=== PATIENT | male | born 1975 | race Caucasian/White ===

== ENCOUNTER 2016-08-14 17:53 | Emergency (ER) | payer BC ==
[2016-08-14 18:08] VITALS: RESP 18
[2016-08-14] MEDS ORDERED: SODIUM CHLORIDE 0.9% 1,000 ML IV STA (18:32)
--- NOTE | 2016-08-14 18:37 | ED ---
General Adult HPI - General Chief complaint: Extremity Problem,Nontraumatic Stated complaint: pain and numbness in both hands and legs Time Seen by Provider: 08/14/16 18:17 Source: patient, RN notes reviewed Mode of arrival: ambulatory Limitations: no limitations - History of Present Illness Initial comments: Patient is a 41-year-old male presents to the emergency room for evaluation. Patient states he has a history of pulmonary embolisms and DVTs. Patient states he has been placed on Lovenox, Coumadin or and Xarelto in the past. Patient states he has been on Coumadin for the past year. Patient states he recently went on a trip to [facility]. Patient states he was sitting in a car for multiple hours during the day while traveling, which he was advised not to do by his physician. Patient also states that he drank and walked around for long hours during the day like he was also advised not to do. Patient states on he noticed tingling and pain going down bilateral legs near his calf area's. Patient also states he noticed pain in his left shoulder and tingling and numbness radiated down his left arm. Patient states due to his past medical history this worried him. Patient denies chest pain, shortness of breath, headache, dizziness. Patient denies any trauma or injury to his left shoulder. - Related Data Home Medications Medication Instructions Recorded Confirmed Atorvastatin [Lipitor] 20 mg PO DAILY 08/14/16 08/14/16 Multivitamin [Men's Multi-Vitamin] 1 tab PO DAILY 08/14/16 08/14/16 Vitamin B Complex 1 cap PO DAILY 08/14/16 08/14/16 Warfarin [Coumadin] 7.5 mg PO DAILY 08/14/16 08/14/16 Allergies Allergy/AdvReac Type Severity Reaction Status Date / Time No Known Allergies Allergy Verified 08/14/16 18:54 Review of Systems ROS Statement: Those systems with pertinent positive or pertinent negative responses have been documented in the HPI. ROS Other: All systems not noted in ROS Statement are negative. Past Medical History Past Medical History: Deep Vein Thrombosis (DVT), Pulmonary Embolus (PE) Additional Past Medical History / Comment(s): spots on lungs 07/2013. right side paralized diaphgram History of Any Multi-Drug Resistant Organisms: None Reported Additional Past Surgical History / Comment(s): LUNG BIOPSY 07/2013, hernia repair at age 1. Past Anesthesia/Blood Transfusion Reactions: No Reported Reaction Past Psychological History: No Psychological Hx Reported Smoking Status: Former smoker Past Alcohol Use History: Occasional Past Drug Use History: None Reported - Past Family History Mother Family Medical History: Cancer Additional Family Medical History / Comment(s): colon ca Father Family Medical History: Cancer Additional Family Medical History / Comment(s): lung ca General Exam - General Exam Comments Initial Comments: Sitting in exam room, no acute distress. Limitations: no limitations General appearance: alert, in no apparent distress Head exam: Present: atraumatic, normocephalic, normal inspection Eye exam: Present: normal appearance ENT exam: Present: normal exam Neck exam: Present: normal inspection Respiratory exam: Present: normal lung sounds bilaterally. Absent: respiratory distress Cardiovascular Exam: Present: regular rate, normal rhythm, normal heart sounds Extremities exam: Present: normal inspection, full ROM, normal capillary refill Left Shoulder Exam: Present: full ROM, tenderness (palpating over anterior shoulder joint). Absent: swelling, tenderness over AC joint Upper Arm exam: Present: normal inspection, full ROM Elbow exam: Present: normal inspection, full ROM Forearm Wrist exam: Present: normal inspection, full ROM Neuro motor exam: Present: wrist extension intact, thumb opposition intact, thumb IP flexion intact, thumb adduction intact, fingers 2-5 abduction intact Vascular: Present: normal capillary refill (Capillary refill less than 2 seconds ), radial pulse (2+), ulnar pulse (2+) Back exam: Present: normal inspection Neurological exam: Present: alert, oriented X3, CN II-XII intact, normal gait Expanded Speech: Present: fluid speech Sensory exam: Upper Extremity Light Touch: Normal, Lower Extremity Temperature: Normal Motor strength exam: RUE: 5, LUE: 5, RLE: 5, LLE: 5 Psychiatric exam: Present: normal affect, normal mood Skin exam: Present: warm, dry, intact, normal color. Absent: rash Course Vital Signs 08/14/16 18:03 Pulse Rate 85 Respiratory 18 Rate Blood Pressure 141/93 O2 Sat by Pulse 97 Oximetry Medical Decision Making - Medical Decision Making Patient is a 41-year-old male presents to the emergency room for evaluation of bilateral leg pain and left arm tingling and pain. Patient does have a history or DVT's and PE's in the past and is on Coumadin. Labs show no significant findings. Cardiac labs all within normal limits. INR 2.3. D-dimer negative. No acute findings noted on bilateral lower extremity venous ultrasound. Patient declined shoulder x-ray. Patient's shoulder pain most likely related to nerve impingement. Patient is advised to follow-up with his primary care provider for reevaluation. Patient states he understands that was discussed with him. Return parameters discussed. Case discussed with Dr. Mas. - Lab Data Result diagrams: 08/14/16 18:20 08/14/16 18:20 Lab Results 08/14/16 08/14/16 08/14/16 Range/Units 18:20 18:20 18:20 WBC 7.6 (3.8-10.6) k/uL RBC 5.32 (4.30-5.90) m/uL Hgb 16.1 (13.0-17.5) gm/dL Hct 48.2 (39.0-53.0) % MCV 90.5 (80.0-100.0) fL MCH 30.2 (25.0-35.0) pg MCHC 33.4 (31.0-37.0) g/dL RDW 13.3 (11.5-15.5) % Plt Count 222 (150-450) k/uL Neutrophils % 63 % Lymphocytes % 29 % Monocytes % 4 % Eosinophils % 1 % Basophils % 0 % Neutrophils # 4.8 (1.3-7.7) k/uL Lymphocytes # 2.2 (1.0-4.8) k/uL Monocytes # 0.3 (0-1.0) k/uL Eosinophils # 0.1 (0-0.7) k/uL Basophils # 0.0 (0-0.2) k/uL PT (9.0-12.0) sec INR (<1.1) D-Dimer (<0.60) mg/L FEU Sodium 141 (137-145) mmol/L Potassium 4.0 (3.5-5.1) mmol/L Chloride 105 (98-107) mmol/L Carbon Dioxide 24 (22-30) mmol/L Anion Gap 12 mmol/L BUN 13 (9-20) mg/dL Creatinine 0.83 (0.66-1.25) mg/dL Est GFR (MDRD) Af Amer >60 (>60 ml/min/1.73 sqM) Est GFR (MDRD) Non-Af >60 (>60 ml/min/1.73 sqM) Glucose 91 (74-99) mg/dL Calcium 9.9 (8.4-10.2) mg/dL Magnesium 2.0 (1.6-2.3) mg/dL Total Bilirubin 0.9 (0.2-1.3) mg/dL AST 34 (17-59) U/L ALT 50 (21-72) U/L Alkaline Phosphatase 71 (38-126) U/L Total Creatine Kinase 89 (55-170) U/L CK-MB (CK-2) 0.5 (0.0-2.4) ng/mL CK-MB (CK-2) Rel Index 0.6 Troponin I <0.012 (0.000-0.034) ng/mL Total Protein 8.4 H (6.3-8.2) g/dL Albumin 5.0 (3.5-5.0) g/dL 08/14/16 Range/Units 18:20 WBC (3.8-10.6) k/uL RBC (4.30-5.90) m/uL Hgb (13.0-17.5) gm/dL Hct (39.0-53.0) % MCV (80.0-100.0) fL MCH (25.0-35.0) pg MCHC (31.0-37.0) g/dL RDW (11.5-15.5) % Plt Count (150-450) k/uL Neutrophils % % Lymphocytes % % Monocytes % % Eosinophils % % Basophils % % Neutrophils # (1.3-7.7) k/uL Lymphocytes # (1.0-4.8) k/uL Monocytes # (0-1.0) k/uL Eosinophils # (0-0.7) k/uL Basophils # (0-0.2) k/uL PT 21.7 H (9.0-12.0) sec INR 2.3 (<1.1) D-Dimer <0.17 (<0.60) mg/L FEU Sodium (137-145) mmol/L Potassium (3.5-5.1) mmol/L Chloride (98-107) mmol/L Carbon Dioxide (22-30) mmol/L Anion Gap mmol/L BUN (9-20) mg/dL Creatinine (0.66-1.25) mg/dL Est GFR (MDRD) Af Amer (>60 ml/min/1.73 sqM) Est GFR (MDRD) Non-Af (>60 ml/min/1.73 sqM) Glucose (74-99) mg/dL Calcium (8.4-10.2) mg/dL Magnesium (1.6-2.3) mg/dL Total Bilirubin (0.2-1.3) mg/dL AST (17-59) U/L ALT (21-72) U/L Alkaline Phosphatase (38-126) U/L Total Creatine Kinase (55-170) U/L CK-MB (CK-2) (0.0-2.4) ng/mL CK-MB (CK-2) Rel Index Troponin I (0.000-0.034) ng/mL Total Protein (6.3-8.2) g/dL Albumin (3.5-5.0) g/dL - Radiology Data Radiology results: report reviewed, image reviewed Disposition Clinical Impression: Leg pain, Arm paresthesia, left Disposition: HOME SELF-CARE Condition: Good Instructions: Paresthesia (ED) Additional Instructions: Please follow up with primary care provider in 1-2 days. If any new symptom arises or symptoms worsen, return to ER as soon as possible. Referrals: German Richards MD [Primary Care Provider] - 1-2 days Time of Disposition: 20:54
[2016-08-14 19:01] LABS: Basophils % (A) 0 %; CH 30.7; CHCM 34.1; Eosinophils # (A) 0.1 k/uL (0-0.7); Eosinophils % (A) 1 %; HCT 48.2 % (39.0-53.0); HDW 2.72; HGB 16.1 gm/dL (13.0-17.5); Luc # (Auto) 0.16; Luc % (Auto) 2; Lymphocytes # (A) 2.2 k/uL (1.0-4.8); Lymphocytes % (A) 29 %; MCH 30.2 pg (25.0-35.0); MCHC 33.4 g/dL (31.0-37.0); MCV 90.5 fL (80.0-100.0); Mean Platelet Volume 7.2; Monocytes # (A) 0.3 k/uL (0-1.0); Monocytes % (A) 4 %; Neutrophils # (A) 4.8 k/uL (1.3-7.7); Neutrophils % (A) 63 %; RBC 5.32 m/uL (4.30-5.90); RDW 13.3 % (11.5-15.5); WBC 7.6 k/uL (3.8-10.6); WBC (Perox) 7.63
[2016-08-14 19:13] LABS: INR 2.3 (<1.1); Prothrombin Time 21.7 sec (9.0-12.0)
[2016-08-14 19:18] LABS: ALT 50 U/L (21-72); AST 34 U/L (17-59); Alkaline Phosphatase 71 U/L (38-126); Anion Gap 12 mmol/L; Blood Urea Nitrogen 13 mg/dL (9-20); Calcium 9.9 mg/dL (8.4-10.2); Carbon Dioxide 24 mmol/L (22-30); Chloride 105 mmol/L (98-107); Glucose 91 mg/dL (74-99); Non-African American GFR(MDRD) >60 (>60 ml/min/1.73 sqM); Sodium 141 mmol/L (137-145); Total Bilirubin 0.9 mg/dL (0.2-1.3); Total Protein 8.4 g/dL (6.3-8.2)
[2016-08-14 19:30] LABS: Creatine Kinase 89 U/L (55-170)
[2016-08-14 19:41] LABS: Creatine Kinase MB 0.5 ng/mL (0.0-2.4); Troponin I <0.012 ng/mL (0.000-0.034)
--- NOTE | 2016-08-14 20:36 | US ---
EXAMINATION TYPE: US venous doppler duplex LE BI DATE OF EXAM: 08/14/2016 8:14 PM COMPARISON: Prior in PACS 2014 CLINICAL HISTORY: Pain and numbness bilaterally x2 days. Patient states history of multiple DVTs in r ight leg. Patient is currently taking blood thinners SIDE PERFORMED: Bilateral lower extremity venous ultrasound May 13, 2014 TECHNIQUE: The lower extremity deep venous system is examined utilizing real time linear array sonog edwina with graded compression, doppler sonography and color-flow sonography. VESSELS IMAGED: External Iliac Vein (EIV) Common Femoral Vein Deep Femoral Vein Greater Saphenous Vein * Femoral Vein Popliteal Vein Small Saphenous Vein * Proximal Calf Veins (* superficial vessels) Right Leg: There is no flow or compressibility detected in the mid-distal right femoral vein. There appears to be possible patent right mid and distal collateral veins. Within the right popliteal vein to proximal calf veins, there is thready flow and incomplete compression- possible chronic DVT. Left Leg: Negative for DVT IMPRESSION: There is persistent age indeterminate thrombus in the right lower extremity from mid supe rficial femoral vein through the tibial vein in the right lower extremity. Finding is improved versus prior study.
[2016-08-14 21:35] VITALS: BP 126/82; PULSE 76; TEMP 98.8
== END 2016-08-14 21:31 | disposition home or self-care (01) ==
LOC: EC 17:53
DX: M79.602 Pain in left arm (principal); M79.605 Pain in left leg; M79.604 Pain in right leg; R20.0 Anesthesia of skin; Z86.711 Personal history of pulmonary embolism; Z86.718 Personal history of other venous thrombosis and embolism; Z87.891 Personal history of nicotine dependence; Z79.01 Long term (current) use of anticoagulants; Z79.899 Other long term (current) drug therapy
CPT/HCPCS: 36415; 80053; 82550; 82553; 83735; 84484; 85025; 85379; 85610; 93005; 93970; 96360; 99284

== ENCOUNTER 2019-08-19 11:16 | Emergency (ER) | payer BC ==
[2019-08-19 11:31] VITALS: RESP 18; TEMP 98.9
[2019-08-19] MEDS ORDERED: PROPARACAINE 0.5% OPHTH DROPS 15 ML BTL BOTH EYES STA (12:04)
[2019-08-19 12:35] LABS: Basophils % (A) 1 %; Eosinophils # (A) 0.1 k/uL (0-0.7); Eosinophils % (A) 2 %; HCT 46.5 % (39.0-53.0); HGB 15.1 gm/dL (13.0-17.5); Lymphocytes # (A) 1.7 k/uL (1.0-4.8); Lymphocytes % (A) 31 %; MCH 29.8 pg (25.0-35.0); MCHC 32.6 g/dL (31.0-37.0); MCV 91.5 fL (80.0-100.0); Mean Platelet Volume 8.1; Monocytes # (A) 0.3 k/uL (0-1.0); Monocytes % (A) 5 %; Neutrophils # (A) 3.2 k/uL (1.3-7.7); Neutrophils % (A) 59 %; Platelet Count 198 k/uL (150-450); RBC 5.08 m/uL (4.30-5.90); RDW 12.8 % (11.5-15.5); WBC 5.4 k/uL (3.8-10.6)
[2019-08-19 12:43] LABS: INR 2.6 (<1.2); Partial Thromboplastin Time 29.9 sec (22.0-30.0); Prothrombin Time 24.9 sec (9.0-12.0)
--- NOTE | 2019-08-19 12:43 | CT ---
EXAMINATION TYPE: CT brain wo con DATE OF EXAM: 08/19/2019 COMPARISON: None INDICATION: Transient vison loss, right eye pain DLP: 1099.4 mGycm, Automated exposure control for dose reduction was used. CONTRAST: None CT of the brain is performed utilizing 3 mm thick sections through the posterior fossa and 3 mm thick sections through the remaining calvarium. Study is performed within 24 hours of arrival to the hosp ital. A single image there is a punctate density in the left frontal lobe. Series 201 image 35. This may be a small vessel possibly petechial hemorrhage. Artifact is favored within the differential. This cou ld be further evaluated with MRI. No adjacent edema is evident. No additional areas of suspicious jesenia nges are evident. No mass lesion is evident. No acute infarcts are evident. Ventricles and sulci are appropriate for the patient age. Paranasal sinuses and mastoid air cells within the [id number] are clear. IMPRESSIONS: 1. Solitary punctate slightly dense area within the left frontal lobe most likely artifact or cong l vascular structure. This area can be further evaluated with MRI. Report was called to emergency juan Clancy by Dr. No by telephone at the time of [id number] hours 08-19-2019.
[2019-08-19 12:48] LABS: African American GFR (CKD) >90 (>60 ml/min/1.73 sqM); Anion Gap 9 mmol/L; Blood Urea Nitrogen 10 mg/dL (9-20); Calcium 9.6 mg/dL (8.4-10.2); Carbon Dioxide 23 mmol/L (22-30); Chloride 108 mmol/L (98-107); Glucose 94 mg/dL (74-99); Non-African American GFR(CKD) >90 (>60 ml/min/1.73 sqM); Sodium 140 mmol/L (137-145)
[2019-08-19 13:23] VITALS: PULSE 78
--- NOTE | 2019-08-19 13:43 | ED ---
Eye Problem HPI - General Source: patient, RN notes reviewed, old records reviewed Mode of arrival: ambulatory Limitations: no limitations <Katerina Clancy - Last Filed: 08/19/19 14:35> <Theodore Brown - Last Filed: 08/19/19 15:05> - General Chief complaint: Eye Problems Stated complaint: pain behind eye Time Seen by Provider: 08/19/19 11:41 - History of Present Illness Initial comments: Patient is a pleasant 44-year-old male emergency department today with chief complaint of intermittent right eye pain and blurry vision for the past 3 days. He also reports that today he developed right frontal headache that seemed to be pinpoint in nature. He reports that the headaches history, but it is is now diminished and complains of no pain. He states that he currently has no visual issues. He does report to have a history of multiple blood clots and is currently on Coumadin. He states that he has no other neurological deficits or complaints. Patient states that he initially thought his eye pain was related to possible infection or stye. Patient reports that he is out of her glasses or contacts. Denies any head injury or trauma. (Katerina Clancy) - Related Data Home Medications Medication Instructions Recorded Confirmed Atorvastatin [Lipitor] 20 mg PO DAILY 08/14/16 08/14/16 Multivitamin [Men's Multi-Vitamin] 1 tab PO DAILY 08/14/16 08/14/16 Vitamin B Complex 1 cap PO DAILY 08/14/16 08/14/16 Warfarin [Coumadin] 7.5 mg PO DAILY 08/14/16 08/14/16 Allergies Allergy/AdvReac Type Severity Reaction Status Date / Time No Known Allergies Allergy Verified 08/19/19 11:31 Review of Systems ROS Other: All systems not noted in ROS Statement are negative. <Katerina Clancy - Last Filed: 08/19/19 14:35> ROS Other: All systems not noted in ROS Statement are negative. <Theodore Brown - Last Filed: 08/19/19 15:05> ROS Statement: Those systems with pertinent positive or pertinent negative responses have been documented in the HPI. Past Medical History Past Medical History: Deep Vein Thrombosis (DVT), Pulmonary Embolus (PE) Additional Past Medical History / Comment(s): spots on lungs 07/2013. right side paralized diaphgram History of Any Multi-Drug Resistant Organisms: None Reported Additional Past Surgical History / Comment(s): LUNG BIOPSY 07/2013, hernia repair at age 1. Past Anesthesia/Blood Transfusion Reactions: No Reported Reaction Past Psychological History: No Psychological Hx Reported Smoking Status: Former smoker Past Alcohol Use History: Occasional Past Drug Use History: Marijuana - Past Family History Mother Family Medical History: Cancer Additional Family Medical History / Comment(s): colon ca Father Family Medical History: Cancer Additional Family Medical History / Comment(s): lung ca <Katerina Clancy - Last Filed: 08/19/19 14:35> General Exam Limitations: no limitations General appearance: alert, in no apparent distress Head exam: Present: atraumatic, normocephalic, normal inspection Eye exam: Present: normal appearance, PERRL, EOMI, other (Intraocular eye movements are intact. Right is intraocular pressure was 18 on the right, 16 on the left. Corneas normal with no ulcerations or abnormal uptake on 4 scene eye exam.). Absent: scleral icterus, conjunctival injection, periorbital swelling ENT exam: Present: normal exam, normal oropharynx, mucous membranes moist, other Neck exam: Present: normal inspection. Absent: tenderness, meningismus, lymphadenopathy Respiratory exam: Present: normal lung sounds bilaterally. Absent: respiratory distress, wheezes, rales, rhonchi, stridor Cardiovascular Exam: Present: regular rate, normal rhythm, normal heart sounds. Absent: systolic murmur, diastolic murmur, rubs, gallop, clicks GI/Abdominal exam: Present: soft, normal bowel sounds. Absent: distended, tenderness, guarding, rebound, rigid Extremities exam: Present: normal inspection, full ROM, normal capillary refill. Absent: tenderness, pedal edema, joint swelling, calf tenderness Back exam: Present: normal inspection, full ROM Neurological exam: Present: alert, oriented X3, CN II-XII intact, normal gait Expanded Patient oriented to: Present: person, place, time Speech: Present: fluid speech Cranial nerves: EOM's Intact: Normal, Facial Sensation: Normal Cerebellar function: Finger to Nose: Normal Upper motor neuron: Pronator Drift: Normal Sensory exam: Upper Extremity Light Touch: Normal, Lower Extremity Light Touch: Normal Motor strength exam: RUE: 5, LUE: 5, RLE: 5, LLE: 5 Eye Response: (4) open spontaneously Motor Response: (6) obeys commands Verbal Response: (5) oriented Forbes Total: 15 Psychiatric exam: Present: normal affect, normal mood Skin exam: Present: warm, dry, intact, normal color. Absent: rash <Katerina Clancy - Last Filed: 08/19/19 14:35> - General Exam Comments Initial Comments: Alert and oriented 44-year-old male. No distress. (JuliethKaterina) Course Vital Signs 08/19/19 08/19/19 11:28 13:22 Temperature 98.9 F Pulse Rate 80 78 Respiratory 18 18 Rate Blood Pressure 134/82 122/84 O2 Sat by Pulse 96 96 Oximetry Medical Decision Making - Lab Data Result diagrams: 08/19/19 12:16 08/19/19 12:16 - Radiology Data Radiology results: report reviewed <Katerina Clancy - Last Filed: 08/19/19 14:35> - Lab Data Result diagrams: 08/19/19 12:16 08/19/19 12:16 <Theodore Brown - Last Filed: 08/19/19 15:05> - Medical Decision Making 44-year-old male presents emergency department today with intermittent right eye pain, transient blurred vision, and today complained of right frontal headache. At this time patient visual acuity is intact, normal eye exam, and normal IOP of 14 on L and 16 on R. Denies current headache. He reports is main concern is due to the fact of a different feeling of headache, and was worried with his hx of blood clots. INR is currently 2.6. Patient had a computed tomography scan of the brain due to this change of headache and transient visual changes. There is concern for a punctate lesion which may be artifact versus possible petechial hemorrhage. This is on the left frontal lobe, not corresponding to patient area of pain. Discussed the case with Dr. Brown, whom also discussed the case with Dr. Stallworth on-call neurologist who recommended transfer. Dr. Brown and will be taking over the patient's care discussed with Dr. Lindquist. Patient will be transferred to [facility]. (Katerina Clancy) Case discussed with Dr. Stallworth, covering for neurology at this institution, rec ommends transfer for further evaluation treatment. I talked with the stroke neurologist Dr. Lindquist who also is agreeable with transfer to [facility], does not recommend reversal of Coumadin at this time, we will wait on better imaging. I discussed case with the ER physician at [facility] Dr. Gomez, who will accept admission. Patient is agreeable with transfer to [facility]. Patient is neurologically intact, with a stable blood pressure, well-appearing and does not currently have a headache. (Theodore Brown) - Lab Data Lab Results 08/19/19 08/19/19 08/19/19 Range/Units 12:16 12:16 12:16 WBC 5.4 (3.8-10.6) k/uL RBC 5.08 (4.30-5.90) m/uL Hgb 15.1 (13.0-17.5) gm/dL Hct 46.5 (39.0-53.0) % MCV 91.5 (80.0-100.0) fL MCH 29.8 (25.0-35.0) pg MCHC 32.6 (31.0-37.0) g/dL RDW 12.8 (11.5-15.5) % Plt Count 198 (150-450) k/uL Neutrophils % 59 % Lymphocytes % 31 % Monocytes % 5 % Eosinophils % 2 % Basophils % 1 % Neutrophils # 3.2 (1.3-7.7) k/uL Lymphocytes # 1.7 (1.0-4.8) k/uL Monocytes # 0.3 (0-1.0) k/uL Eosinophils # 0.1 (0-0.7) k/uL Basophils # 0.0 (0-0.2) k/uL PT 24.9 H (9.0-12.0) sec INR 2.6 H (<1.2) APTT 29.9 (22.0-30.0) sec Sodium 140 (137-145) mmol/L Potassium 4.0 (3.5-5.1) mmol/L Chloride 108 H (98-107) mmol/L Carbon Dioxide 23 (22-30) mmol/L Anion Gap 9 mmol/L BUN 10 (9-20) mg/dL Creatinine 0.79 (0.66-1.25) mg/dL Est GFR (CKD-EPI)AfAm >90 (>60 ml/min/1.73 sqM) Est GFR (CKD-EPI)NonAf >90 (>60 ml/min/1.73 sqM) Glucose 94 (74-99) mg/dL Calcium 9.6 (8.4-10.2) mg/dL - Radiology Data CT of the brain shows solitary punctate slightly dense area in the left frontal lobe most likely artifact are normal vasculature. Can be further evaluated with MRI. Report was called to myself. This may be of vessels possibly a small petechial hemorrhage. Read by Dr. No. (Katerina Clancy) Critical Care Time Critical Care Time: Yes Total Critical Care Time: 35 <Theodore Brown - Last Filed: 08/19/19 15:05> Disposition <Katerina Clancy - Last Filed: 08/19/19 14:35> Is patient prescribed a controlled substance at d/c from ED?: No Time of Disposition: 14:45 - Out of Hospital Transfer - Req. Specs Out of Hospital Transfer - Requested Specifics: Other Emergency Center (Transferred to [facility]) <Theodore Brown - Last Filed: 08/19/19 15:05> Clinical Impression: Headache, Abnormal CT of brain, Intracranial hemorrhage Disposition: OTHER INSTITUTION NOT DEFINED Condition: Stable Referrals: German Richards MD [Primary Care Provider] - 1-2 days
[2019-08-19 15:36] VITALS: BP 140/87
== END 2019-08-19 15:45 | disposition other institution (70) ==
LOC: EC 11:16
DX: I62.9 Nontraumatic intracranial hemorrhage, unspecified (principal); H57.11 Ocular pain, right eye; Z79.01 Long term (current) use of anticoagulants; Z86.711 Personal history of pulmonary embolism; Z86.718 Personal history of other venous thrombosis and embolism; Z87.891 Personal history of nicotine dependence
CPT/HCPCS: 36415; 70450; 80048; 85025; 85610; 85730; 99291

== ENCOUNTER → 2019-09-02 | Outpatient (CLI) | payer BC ==
--- NOTE | 2019-09-02 16:47 | MR ---
EXAMINATION TYPE: MR brain wo con DATE OF EXAM: 09/02/2019 4:06 PM COMPARISON: CT 08/19/2019 HISTORY: Abnormal CT, headache Multiplanar and multispin-echo imaging of the brain was performed . The ventricles, basal cisterns and sulci overlying the cerebral convexities are within normal limits. There is no evidence for midline shift or mass effect. Acute intracranial hemorrhage or extra-axial collection is not evident. The brain parenchyma reveals no abnormal increased signal. No acute edema is identified. The paranasal sinuses and mastoid air cells are well-aerated. IMPRESSION: Unremarkable MRI of the brain.
--- NOTE | 2019-09-02 18:34 | MR ---
EXAMINATION TYPE: MR MRA/MRV head wo/w con DATE OF EXAM: 09/02/2019 4:33 PM COMPARISON: NONE HISTORY: Headache. Abnormal CT Three-dimensional [id number] intracranial MRA/MRV was performed with multiple intensity projectio n images submitted and source data reviewed at the workstation. The vertebrobasilar system as well as intracranial portions of the internal carotid arteries and thei r major tributaries are patent. I do not see evidence for sizable aneurysm or vascular malformation. Deep venous sinuses are patent without evidence for dural venous sinus thrombosis. IMPRESSION: Normal study.
== END | disposition home or self-care (01) ==
LOC: RADMRIMAIN 15:03
PROVIDERS: ATTEND Nurse Practitioner Critical Care Medicine
DX: R51 Headache (principal); R93.0 Abnormal findings on diagnostic imaging of skull and head, not elsewhere classified
CPT/HCPCS: 70546; 70551; A9585

== ENCOUNTER → 2020-01-19 | Outpatient (CLI) | payer BC | END | disposition home or self-care (01) | LOC: LABWHC1 10:24 | PROVIDERS: ATTEND Emergency Medicine | DX: Z20.828 Contact with and (suspected) exposure to other viral communicable diseases (principal) | CPT/HCPCS: U0003; C9803 ==

== ENCOUNTER 2023-12-19 09:54 | Day surgery (SDC) | payer BC ==
[2023-12-17 12:52] VITALS: BMI 29.7
[~2023-12-19 09:54] MED LIST: LIDOCAINE 1% (10MG/ML) FOR IV START INTRADERMA PRN
[2023-12-19 10:18] VITALS: TEMP 97.2
[2023-12-19] MEDS: LACTATED RINGERS 1,000 ML IV SCH (10:27)
[2023-12-19] MEDS: IV FLUID CONTINUATION 1,000 ML IV ONE (10:28)
[2023-12-19] MEDS ORDERED: LIDOCAINE 1% INJ 10MG/ML (20 ML MDV) ONE (10:44)
[2023-12-19] MEDS ORDERED: PROPOFOL 10 MG/ML 20 ML VIAL IV ONE (10:44)
--- NOTE | 2023-12-19 11:02 | P.PCN ---
Date of Procedure: 12/19/23 Procedure(s) Performed: BRIEF HISTORY: Patient is a 48-year-old pleasant white male scheduled for an elective colonoscopy as a part of screening for colon cancer and family history of colon cancer. His mother was diagnosed with colon cancer at age 60. PROCEDURE PERFORMED: Colonoscopy with snare polypectomy. PREOPERATIVE DIAGNOSIS: Screening for colon cancer and family history of colon cancer. IV sedation per Anesthesia. PROCEDURE: After informed consent was obtained, the patient, was brought into the endoscopy unit. IV sedation was administered by Anesthesia under continuous monitoring. Digital rectal examination was normal. Initially the Olympus CF-160 flexible video colonoscope was then inserted in the rectum, gradually advanced into the cecum without any difficulty. Careful examination was performed as the scope was gradually being withdrawn. Ileocecal valve and the appendiceal orifice were visualized and appeared normal. Prep was excellent. Mucosa of the cecum, ascending colon, transverse colon, descending colon, sigmoid colon, and rectum appeared normal. In the rectum there were 2 polyps measuring 5 mm and 7 mm in size both of which were removed by cold snare polypectomy. Retroflexion was performed in the rectum and no lesions were seen. The patient tolerated the procedure well. IMPRESSION: 5 mm and 7 mm rectal polyp status post cold snare polypectomy Rest of the colon appeared normal RECOMMENDATIONS: Findings of this examination were discussed with the patient as well as his family. He was advised to follow-up with the biopsy results and have repeat screening colonoscopy in 5 years because of the family history of colon cancer but the findings of colon cancer.
[2023-12-19 11:10] VITALS: PULSE 81
[2023-12-19 11:24] VITALS: BP 108/71; RESP 18
== END 2023-12-19 11:50 ==
LOC: ORWHC2ENDO 09:54
PROVIDERS: ATTEND Internal Medicine Gastroenterology
DX: Z12.11 Encounter for screening for malignant neoplasm of colon (principal); D12.8 Benign neoplasm of rectum; E78.5 Hyperlipidemia, unspecified; Z86.711 Personal history of pulmonary embolism; Z80.0 Family history of malignant neoplasm of digestive organs; Z79.01 Long term (current) use of anticoagulants; Z79.899 Other long term (current) drug therapy
CPT/HCPCS: 45385; 88305

== ENCOUNTER → 2023-12-26 | Outpatient (CLI) | payer BC ==
--- NOTE | 2023-12-26 11:19 | US ---
EXAMINATION TYPE: US venous doppler duplex LE RT DATE OF EXAM: 12/26/2023 10:24 AM COMPARISON: 08/14/16 CLINICAL INDICATION: Male, 48 years old with history of R22.41 SWELLING M79.661 PAIN IN RLE; pain beh ind knee. Hx of DVT, on blood thinners SIDE PERFORMED: Right TECHNIQUE: The lower extremity deep venous system is examined utilizing real time linear array sonog edwina with graded compression, doppler sonography and color-flow sonography. VESSELS IMAGED: Common Femoral Vein Deep Femoral Vein Greater Saphenous Vein * Femoral Vein Popliteal Vein Small Saphenous Vein * Proximal Calf Veins (* superficial vessels) Right Leg: echoes seen in the popliteal vein, but appears mostly compressible and blood flow seen. IMPRESSION: Chronic appearing popliteal deep vein thrombosis.
== END | disposition home or self-care (01) ==
LOC: RADUSWWP 09:59
PROVIDERS: ATTEND Internal Medicine Hematology & Oncology
DX: I82.531 Chronic embolism and thrombosis of right popliteal vein (principal); Z79.01 Long term (current) use of anticoagulants

== ENCOUNTER 2024-01-30 20:51 | Emergency (ER) | payer BC ==
[2024-01-30 21:03] VITALS: RESP 18; TEMP 98.9
--- NOTE | 2024-01-30 21:47 | ED ---
General Adult HPI - General Chief complaint: Dizziness Stated complaint: Weakness Source: patient Mode of arrival: ambulatory Limitations: no limitations - History of Present Illness Initial comments: Dictation was produced using [employer] dictation software. please excuse any grammatical, word or spelling errors. Chief Complaint: 49-year-old male with history of DVT and PE presents to the ER for lightheadedness History of Present Illness: Patient is a 49-year-old male he just returned from [place] approximately 4 days ago. He has history of DVT and PE. Patient has chronic DVTs. He takes anticoagulation medications for DVT and PE prophylaxis. Does complain of some mild aches in his bilateral calfs. Patient currently on Coumadin. States that his INR has been subtherapeutic. The ROS documented in this emergency department record has been reviewed and confirmed by me. Those systems with pertinent positive or negative responses have been documented in the HPI. All other systems are other negative and/or noncontributory. - Related Data Home Medications Medication Instructions Recorded Confirmed Multivitamin [Men's Multi-Vitamin] 1 tab PO DAILY 08/14/16 12/19/23 RX: Vitamin B Complex 1 cap PO DAILY 08/14/16 12/19/23 Warfarin [Coumadin] 7.5 mg PO DAILY 08/14/16 12/19/23 Ezetimibe [Zetia] 10 mg PO DAILY 12/17/23 12/19/23 Fluticasone/Vilanterol [Breo 1 each IH DAILY 12/17/23 12/19/23 Ellipta 100-25 Mcg Inhalr] Allergies Allergy/AdvReac Type Severity Reaction Status Date / Time No Known Allergies Allergy Verified 01/30/24 21:02 Review of Systems ROS Statement: Those systems with pertinent positive or pertinent negative responses have been documented in the HPI. ROS Other: All systems not noted in ROS Statement are negative. Past Medical History Past Medical History: Deep Vein Thrombosis (DVT), Hyperlipidemia, Pulmonary Embolus (PE) Additional Past Medical History / Comment(s): spots on lungs 07/2013. DVT RT LEG, right side paralyzed diaphgram, History of Any Multi-Drug Resistant Organisms: None Reported Past Surgical History: Hernia Repair Additional Past Surgical History / Comment(s): LUNG BIOPSY 07/2013, hernia repair at age 1., Past Anesthesia/Blood Transfusion Reactions: No Reported Reaction Past Psychological History: No Psychological Hx Reported Smoking Status: Former smoker Past Alcohol Use History: Occasional Past Drug Use History: Marijuana - Past Family History Mother Family Medical History: Cancer Additional Family Medical History / Comment(s): colon ca Father Family Medical History: Cancer Additional Family Medical History / Comment(s): lung ca General Exam - General Exam Comments Initial Comments: PHYSICAL EXAM: General Impression: Alert and oriented x3, not in acute distress HEENT: Normocephalic atraumatic, extra-ocular movements intact, pupils equal and reactive to light bilaterally, mucous membranes moist. Cardiovascular: Heart regular rate and rhythm Chest: Able to complete full sentences, no retractions, no tachypnea Abdomen: abdomen soft, non-tender, non-distended, no organomegaly Musculoskeletal: Pulses present and equal in all extremities, no peripheral edema Motor: no focal deficits noted Neurological: CN II-XII grossly intact, no focal motor or sensory deficits noted Skin: Intact with no visualized rashes Psych: Normal affect and mood Limitations: no limitations Course Vital Signs 01/30/24 20:57 Temperature 98.9 F Pulse Rate 84 Respiratory 18 Rate Blood Pressure 156/99 O2 Sat by Pulse 98 Oximetry EKG Findings - EKG Comments: EKG Findings:: My EKG interpretation: Ventricular rate 83, sinus rhythm,. 179, QRS 96, QTc 361. No AL prolongation, no QTC prolongation, no ST or T-wave changes noted. Overall, this EKG is unremarkable Medical Decision Making - Medical Decision Making Was pt. sent in by a medical professional or institution (, PA, FLIGHT CONTROLS ENGINEER, urgent care, hospital, or intermediate...) When possible be specific @ -No Did you speak to anyone other than the patient for history (EMS, parent, family, police, friend...)? What history was obtained from this source @ - at the bedside as described above Did you review nursing and triage notes (agree or disagree)? Why? @ -I reviewed and agree with nursing and triage notes Were old charts reviewed (outside hosp., previous admission, EMS record, old EKG, old radiological studies, urgent care reports/EKG's, intermediate records)? Report findings @ -No old charts were reviewed Differential Diagnosis (chest pain, altered mental status, abdominal pain women, abdominal pain men, vaginal bleeding, musculoskeletal, weakness, fever, dyspnea, syncope, headache, dizziness, GI bleed, back pain, seizure, CVA, palpatations, mental health)? @ -Differential Dizziness: Benign paroxysmal positional Vertigo, Meniere's disease, otitis media, acoustic neuroma, vertebrobasilar insufficiency, cerebellar stroke, encephalitis, hypovolemic, arrhythmia, coronary artery syndrome, anemia, this is not meant to be an all-inclusive list EKG interpreted by me (3pts min.). @ -See above X-rays interpreted by me (1pt min.). @ -None done CT interpreted by me (1pt min.). @ -None done U/S interpreted by me (1pt. min.). @ -Ultrasound bilateral lower extremity venous duplex shows no acute processes What testing was considered but not performed or refused? (CT, X-rays, U/S, labs)? Why? @ -None What meds were considered but not given or refused? Why? @ -None Was smoking cessation discussed for >3mins.? @ -No Were there social determinants of health that impacted care today? How? ( Homelessness, low income, unemployed, alcoholism, drug addiction, transportation, low edu. Level, literacy, decrease access to med. care, halfway, rehab)? @ -No Was there de-escalation of care discussed even if they declined (Discuss DNR or withdrawal of care, Hospice)? DNR status @ -No What co-morbidities impacted this encounter? (DM, HTN, Smoking, COPD, CAD, Cancer, CVA, ARF, Chemo, Hep., AIDS, mental health diagnosis, sleep apnea, morbid obesity)? @ -None Was patient admitted / discharged? Hospital course, mention meds given and route, prescriptions, significant lab abnormalities, going to OR and other pertinent info. @ -49-year-old male recently returned from [place] trip presents to the ER for vague systemic symptoms including dizziness, lightheadedness, nausea and prickly sensations to his extremities. Patient concerned that this has something to do with subtherapeutic INR. 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 Nonetheless he is well-appearing with benign physical examination. Laboratory evaluation is unremarkable. Viral testing negative. Patient given IV fluids re evaluated at bedside 11:40 PM [facility]. Patient discharged advised follow-up with primary care doctor. Did you discuss the management of the patient with other professionals (mel adkinse. , PA, FLIGHT CONTROLS ENGINEER, lab, RT, psych nurse, high school social studies tutor, administrative operations coordinator, teacher, railway patrol officer, comp field case manager)? Give summary @ -No Was critical care preformed (if so, how long)? @ -No Undiagnosed new problem with uncertain prognosis? @ -No Drug Therapy requiring intensive monitoring for toxicity (Heparin, Nitro, Insulin, Cardizem)? @ -No Were any procedures done? @ -No Diagnosis/symptom? Acute, or Chronic, or Acute on Chronic? Uncomplicated (without systemic symptoms) or Complicated (systemic symptoms)? @ -Dizziness Side effects of treatment? @ -No Exacerbation, Progression, or Severe Exacerbation? @ -No Poses a threat to life or bodily function? How? (Chest pain, USA, SD, pneumonia, PE, COPD, DKA, ARF, appy, cholecystitis, CVA, Diverticulitis, Homicidal, Suicidal, threat to staff... and all critical care pts) @ -No - Lab Data Result diagrams: 01/30/24 21:17 01/30/24 21:17 Lab Results 01/30/24 01/30/24 01/30/24 Range/Units 21:17 21:17 21:17 WBC 8.0 (3.8-10.6) k/uL RBC 5.27 (4.30-5.90) m/uL Hgb 15.9 (13.0-17.5) gm/dL Hct 49.2 (39.0-53.0) % MCV 93.3 (80.0-100.0) fL MCH 30.2 (25.0-35.0) pg MCHC 32.4 (31.0-37.0) g/dL RDW 12.9 (11.5-15.5) % Plt Count 211 (150-450) k/uL MPV 8.0 Neutrophils % 55 % Lymphocytes % 36 % Monocytes % 5 % Eosinophils % 2 % Basophils % 1 % Neutrophils # 4.4 (1.3-7.7) k/uL Lymphocytes # 2.9 (1.0-4.8) k/uL Monocytes # 0.4 (0-1.0) k/uL Eosinophils # 0.1 (0-0.7) k/uL Basophils # 0.0 (0-0.2) k/uL PT 11.2 (10.0-12.5) sec INR 1.0 (<1.2) APTT 23.8 (22.0-30.0) sec Sodium 140 (137-145) mmol/L Potassium 4.3 (3.5-5.1) mmol/L Chloride 108 H (98-107) mmol/L Carbon Dioxide 24 (22-30) mmol/L Anion Gap 8 mmol/L BUN 13 (9-20) mg/dL Creatinine 0.82 (0.66-1.25) mg/dL Est GFR (CKD-EPI)AfAm >90 (>60 ml/min/1.73 sqM) Est GFR (CKD-EPI)NonAf >90 (>60 ml/min/1.73 sqM) Glucose 84 (74-99) mg/dL Calcium 9.9 (8.4-10.2) mg/dL Magnesium 2.2 (1.6-2.3) mg/dL Total Bilirubin 0.8 (0.2-1.3) mg/dL AST 31 (17-59) U/L ALT 49 (4-49) U/L Alkaline Phosphatase 61 (38-126) U/L Total Protein 7.7 (6.3-8.2) g/dL Albumin 4.9 (3.5-5.0) g/dL Influenza Type A (PCR) (Not Detectd) Influenza Type B (PCR) (Not Detectd) RSV (PCR) (Not Detectd) SARS-CoV-2 (PCR) (Not Detectd) 01/30/24 Range/Units 22:12 WBC (3.8-10.6) k/uL RBC (4.30-5.90) m/uL Hgb (13.0-17.5) gm/dL Hct (39.0-53.0) % MCV (80.0-100.0) fL MCH (25.0-35.0) pg MCHC (31.0-37.0) g/dL RDW (11.5-15.5) % Plt Count (150-450) k/uL MPV Neutrophils % % Lymphocytes % % Monocytes % % Eosinophils % % Basophils % % Neutrophils # (1.3-7.7) k/uL Lymphocytes # (1.0-4.8) k/uL Monocytes # (0-1.0) k/uL Eosinophils # (0-0.7) k/uL Basophils # (0-0.2) k/uL PT (10.0-12.5) sec INR (<1.2) APTT (22.0-30.0) sec Sodium (137-145) mmol/L Potassium (3.5-5.1) mmol/L Chloride (98-107) mmol/L Carbon Dioxide (22-30) mmol/L Anion Gap mmol/L BUN (9-20) mg/dL Creatinine (0.66-1.25) mg/dL Est GFR (CKD-EPI)AfAm (>60 ml/min/1.73 sqM) Est GFR (CKD-EPI)NonAf (>60 ml/min/1.73 sqM) Glucose (74-99) mg/dL Calcium (8.4-10.2) mg/dL Magnesium (1.6-2.3) mg/dL Total Bilirubin (0.2-1.3) mg/dL AST (17-59) U/L ALT (4-49) U/L Alkaline Phosphatase (38-126) U/L Total Protein (6.3-8.2) g/dL Albumin (3.5-5.0) g/dL Influenza Type A (PCR) Not Detected (Not Detectd) Influenza Type B (PCR) Not Detected (Not Detectd) RSV (PCR) Not Detected (Not Detectd) SARS-CoV-2 (PCR) Not Detected (Not Detectd) Disposition Clinical Impression: Dizziness Disposition: HOME SELF-CARE Condition: Good Instructions (If sedation given, give patient instructions): Warfarin (By mouth) Is patient prescribed a controlled substance at d/c from ED?: No Referrals: German Richards MD [Primary Care Provider] - 1-2 days Time of Disposition: 23:42
[2024-01-30 21:48] LABS: Basophils % (A) 1 %; Eosinophils # (A) 0.1 k/uL (0-0.7); Eosinophils % (A) 2 %; HCT 49.2 % (39.0-53.0); HGB 15.9 gm/dL (13.0-17.5); Lymphocytes # (A) 2.9 k/uL (1.0-4.8); Lymphocytes % (A) 36 %; MCH 30.2 pg (25.0-35.0); MCHC 32.4 g/dL (31.0-37.0); MCV 93.3 fL (80.0-100.0); Monocytes # (A) 0.4 k/uL (0-1.0); Monocytes % (A) 5 %; Neutrophils # (A) 4.4 k/uL (1.3-7.7); Neutrophils % (A) 55 %; Platelet Count 211 k/uL (150-450); RBC 5.27 m/uL (4.30-5.90); RDW 12.9 % (11.5-15.5)
[2024-01-30 21:56] LABS: Partial Thromboplastin Time 23.8 sec (22.0-30.0); Prothrombin Time 11.2 sec (10.0-12.5)
[2024-01-30 22:01] LABS: ALT 49 U/L (4-49); AST 31 U/L (17-59); African American GFR (CKD) >90 (>60 ml/min/1.73 sqM); Albumin 4.9 g/dL (3.5-5.0); Alkaline Phosphatase 61 U/L (38-126); Anion Gap 8 mmol/L; Blood Urea Nitrogen 13 mg/dL (9-20); Calcium 9.9 mg/dL (8.4-10.2); Carbon Dioxide 24 mmol/L (22-30); Chloride 108 mmol/L (98-107); Glucose 84 mg/dL (74-99); Magnesium 2.2 mg/dL (1.6-2.3); Non-African American GFR(CKD) >90 (>60 ml/min/1.73 sqM); Potassium 4.3 mmol/L (3.5-5.1); Sodium 140 mmol/L (137-145); Total Bilirubin 0.8 mg/dL (0.2-1.3); Total Protein 7.7 g/dL (6.3-8.2)
[2024-01-30] MEDS: SODIUM CHLORIDE 0.9% 1,000 ML IV STA (22:06)
--- NOTE | 2024-01-30 23:21 | US ---
EXAMINATION TYPE: US venous doppler duplex LE BI DATE OF EXAM: 01/30/2024 11:10 PM COMPARISON: 12/26/2023 right lower extremity CLINICAL INDICATION: Male, 49 years old with history of legs cramping; Patient states hx dvt. 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 No redness or swollen areas. On thinners TECHNIQUE: The lower extremity deep venous system is examined utilizing real time linear array sonog edwina with graded compression, color doppler sonography, and spectral doppler. SIDE PERFORMED: Bilateral FINDINGS: VESSELS IMAGED: Common Femoral Vein Deep Femoral Vein Greater Saphenous Vein * Femoral Vein Popliteal Vein Small Saphenous Vein * Proximal Calf Veins (* superficial vessels) Right Leg: Echoes seen within the popliteal vein, however color flow and partial compressibility see n within. ? chronic DVT Left Leg: Appears negative for DVT Grayscale, color doppler, spectral doppler imaging performed of the deep veins of the bilateral lower extremities. IMPRESSION: 1. Evidence of chronic partially occlusive DVT right lower extremity redemonstrated similar to most r ecent prior. No new acute DVT identified bilaterally. [facility], , 01/30/2024 11:18 PM
[2024-01-31 00:44] VITALS: BP 121/83; PULSE 60
== END 2024-01-31 00:45 | disposition home or self-care (01) ==
LOC: EC 20:51
CPT/HCPCS: 36415; 80053; 83735; 85025; 85610; 85730; 87636; 93970; 96360; 99284